=== PATIENT | female | born 1975 | race Caucasian/White ===

== ENCOUNTER 2018-02-17 15:33 | Outpatient (REF) | payer MEDICAID, SELFPAY ==
[2018-02-17 21:35] LABS: TSH 0.33 uIU/mL (0.358-3.74)
== END 2018-02-17 15:53 ==
LOC: NCHCN 15:33
PROVIDERS: PCP Family Medicine; Visit Provider Family Medicine
DX: E03.9 Hypothyroidism, unspecified (principal); J01.10 Acute frontal sinusitis, unspecified; R03.0 Elevated blood-pressure reading, without diagnosis of hypertension; E66.3 Overweight
CPT/HCPCS: 84443

== ENCOUNTER 2018-04-12 15:44 | Outpatient (REF) | payer MEDICAID, SELFPAY ==
[2018-04-12 22:05] LABS: TSH 4.24 uIU/mL (0.358-3.74)
== END 2018-04-12 16:04 ==
LOC: NCHCN 15:44
PROVIDERS: PCP Family Medicine; Visit Provider Family Medicine
DX: E03.9 Hypothyroidism, unspecified (principal)
CPT/HCPCS: 84443

== ENCOUNTER 2018-06-09 15:27 | Outpatient (REF) | payer MEDICAID, SELFPAY ==
[2018-06-09 22:23] LABS: TSH 1.42 uIU/mL (0.358-3.74)
== END 2018-06-09 15:47 ==
LOC: NCHCN 15:27
PROVIDERS: PCP Family Medicine; Visit Provider Family Medicine
DX: E03.9 Hypothyroidism, unspecified (principal)
CPT/HCPCS: 84443

== ENCOUNTER 2018-12-14 23:00 | Outpatient (REF) | payer BC, SELFPAY ==
[2018-12-14 23:08] LABS: Anion Gap 8.7 mmol/L (3-11); BUN 12 mg/dL (7-18); CO2 27.3 mmol/L (21.0-32.0); CREATININE 0.57 mg/dL (0.55-1.02); Calcium 9.3 mg/dL (8.5-10.1); Chloride 105 mmol/L (98-107); Glucose 98 mg/dL (70-100); Magnesium 2.3 mg/dL (1.8-2.4); Sodium 141 mmol/L (136-145); TSH 1.72 uIU/mL (0.36-3.74)
[2018-12-15 16:36] LABS: T3, Total 164 ng/dl (97-169)
[2018-12-16 06:15] LABS: Vitamin D 25 Total 31.9 ng/ml (30-100)
== END 2018-12-14 23:20 ==
LOC: NCHCN 23:00
PROVIDERS: PCP Family Medicine; Visit Provider Family Medicine
DX: I48.91 Unspecified atrial fibrillation (principal); E03.9 Hypothyroidism, unspecified; E87.6 Hypokalemia; E55.9 Vitamin D deficiency, unspecified
CPT/HCPCS: 80048; 82306; 83735; 84439; 84443; 84480

== ENCOUNTER 2019-02-03 16:29 | Outpatient (REF) | payer BC, SELFPAY ==
[2019-02-03 21:51] LABS: FREE T4 0.97 ng/dL (0.76-1.46); TSH 7.97 uIU/mL (0.36-3.74)
[2019-02-04 17:08] LABS: T3, Total 106 ng/dl (97-169)
== END 2019-02-03 16:49 ==
LOC: NCHCN 16:29
PROVIDERS: PCP Family Medicine; Visit Provider Family Medicine
DX: E03.9 Hypothyroidism, unspecified (principal); I48.0 Paroxysmal atrial fibrillation
CPT/HCPCS: 84439; 84443; 84480

== ENCOUNTER 2019-03-24 15:15 | Outpatient (REF) | payer BC, SELFPAY ==
[2019-03-24 20:09] LABS: TSH 3.64 uIU/mL (0.36-3.74)
== END 2019-03-24 15:35 ==
LOC: NCHCN 15:15
PROVIDERS: PCP Family Medicine; Visit Provider Family Medicine
DX: E03.9 Hypothyroidism, unspecified (principal)
CPT/HCPCS: 84443

== ENCOUNTER 2019-07-07 19:16 | Outpatient (REF) | payer BC, SELFPAY | END 2019-07-07 19:36 | LOC: NCHCN 19:16 | PROVIDERS: PCP Family Medicine; Visit Provider Family Medicine | DX: E03.9 Hypothyroidism, unspecified (principal) | CPT/HCPCS: 84443 ==

== ENCOUNTER 2019-10-06 16:19 | Outpatient (REF) | payer BC, SELFPAY ==
[2019-10-06 20:26] LABS: TSH 4.55 uIU/mL (0.36-3.74)
== END 2019-10-06 16:39 ==
LOC: NCHCN 16:19
PROVIDERS: PCP Family Medicine; Visit Provider Family Medicine
DX: E03.9 Hypothyroidism, unspecified (principal)
CPT/HCPCS: 84443

== ENCOUNTER 2020-03-20 16:42 | Outpatient (REF) | payer BC, SELFPAY ==
[2020-03-22 04:27] LABS: Vitamin D 25 Total 26.2 ng/ml (30-100)
== END 2020-03-20 17:02 ==
LOC: NCHCN 16:42
PROVIDERS: PCP Family Medicine; Visit Provider Family Medicine
DX: E55.9 Vitamin D deficiency, unspecified (principal)
CPT/HCPCS: 82306

== ENCOUNTER 2022-05-28 18:17 | Outpatient (REF) | payer MEDICAID, SELFPAY ==
[2022-05-28 21:46] LABS: Anion Gap 6.9 mmol/L (3-11); BUN 11 mg/dL (7-18); CO2 27.1 mmol/L (21.0-32.0); CREATININE 0.7 mg/dL (0.55-1.02); Calcium 9.6 mg/dL (8.5-10.1); Chloride 107 mmol/L (98-107); Estimated GFR 107.95 (mL/min/1.73m2); Glucose 99 mg/dL (74-106); Potassium 3.9 mmol/L (3.5-5.1); Sodium 141 mmol/L (136-145); TSH (W/Ref FT4) 4.22 uIU/mL (0.36-3.74)
[2022-05-28 22:06] LABS: FREE T4 1.25 ng/dL (0.76-1.46)
== END 2022-05-28 18:18 | disposition home or self-care (01) ==
LOC: NCHCN 18:17
PROVIDERS: PCP Family Medicine; Visit Provider Nurse Practitioner Family
DX: I10 Essential (primary) hypertension (principal); E06.3 Autoimmune thyroiditis
CPT/HCPCS: 80048; 84439; 84443

== ENCOUNTER 2022-06-09 15:22 | Outpatient (REF) | payer MEDICAID, SELFPAY ==
[2022-06-09 21:27] LABS: Anion Gap 5.5 mmol/L (3-11); BUN 11 mg/dL (7-18); CO2 30.5 mmol/L (21.0-32.0); CREATININE 0.7 mg/dL (0.55-1.02); Chloride 101 mmol/L (98-107); Estimated GFR 107.95 (mL/min/1.73m2); Glucose 121 mg/dL (74-106); Potassium 3.7 mmol/L (3.5-5.1); Sodium 137 mmol/L (136-145)
== END 2022-06-09 15:23 | disposition home or self-care (01) ==
LOC: NCHCN 15:22
PROVIDERS: PCP Family Medicine; Visit Provider Family Medicine
DX: I10 Essential (primary) hypertension (principal)
CPT/HCPCS: 80048

== ENCOUNTER 2022-08-01 16:36 | Outpatient (REF) | payer MEDICAID, SELFPAY ==
[2022-08-01 21:57] LABS: Hemoglobin A1C 5.4 % (<5.7)
[2022-08-01 22:06] LABS: Calculated LDL 131 mg/dL (<100); Cholesterol 214 mg/dL (<200); HDL Cholesterol 67 mg/dL (40-60); TSH 7.27 uIU/mL (0.36-3.74); Triglyceride 80 mg/dL (<150)
[2022-08-01 22:18] LABS: Vitamin D 25 Total 25.3 ng/mL (30-100)
[2022-08-04 11:16] LABS: FREE T4 1.08 ng/dL (0.76-1.46)
== END 2022-08-01 16:37 | disposition home or self-care (01) ==
LOC: NCHCN 16:36
PROVIDERS: PCP Family Medicine; Visit Provider Family Medicine
DX: E06.3 Autoimmune thyroiditis (principal); E55.9 Vitamin D deficiency, unspecified; I10 Essential (primary) hypertension; Z00.00 Encounter for general adult medical examination without abnormal findings
CPT/HCPCS: 80061; 82306; 83036; 84439; 84443

== ENCOUNTER 2024-01-05 22:02 | Outpatient (REF) | payer SELFPAY ==
[2024-01-05 22:36] LABS: TSH 4.63 uIU/Ml (0.36-3.74)
== END 2024-01-05 22:03 | disposition home or self-care (01) ==
LOC: NCHCN 22:02
PROVIDERS: PCP Family Medicine; Visit Provider Family Medicine
DX: E03.9 Hypothyroidism, unspecified (principal)
CPT/HCPCS: 84443

== ENCOUNTER 2024-02-23 18:57 | Outpatient (REF) | payer BC, SELFPAY ==
[2024-02-23 21:48] LABS: Vitamin D 25 Total 27.2 ng/mL (30-100)
== END 2024-02-23 18:58 | disposition home or self-care (01) ==
LOC: NCHCN 18:57
PROVIDERS: PCP Family Medicine; Visit Provider Family Medicine
DX: E55.9 Vitamin D deficiency, unspecified (principal); E06.3 Autoimmune thyroiditis
CPT/HCPCS: 82306; 84443

== ENCOUNTER 2024-06-20 19:16 | Outpatient (REF) | payer BC, SELFPAY ==
[2024-06-20 21:52] LABS: TSH 10.39 uIU/mL (0.36-3.74); Vitamin D 25 Total 30.8 ng/mL (30-100)
== END 2024-06-20 19:17 | disposition home or self-care (01) ==
LOC: NCHCN 19:16
PROVIDERS: PCP Family Medicine; Visit Provider Family Medicine
DX: E55.9 Vitamin D deficiency, unspecified (principal); E03.9 Hypothyroidism, unspecified
CPT/HCPCS: 82306; 84443

== ENCOUNTER 2024-08-15 16:06 | Outpatient (REF) | payer BC, SELFPAY ==
[2024-08-15 22:31] LABS: TSH 1.67 uIU/mL (0.36-3.74)
== END 2024-08-15 16:07 | disposition home or self-care (01) ==
LOC: NCHCN 16:06
PROVIDERS: PCP Family Medicine; Visit Provider Family Medicine
DX: E06.3 Autoimmune thyroiditis (principal)
CPT/HCPCS: 84443